=== PATIENT | female | born 1975 | race Caucasian/White ===

== ENCOUNTER 2023-02-13 09:22 | Emergency (ER) | payer BC ==
[~2023-02-13] VITALS: Ht 154.9 cm; Wt 75.0 kg
[2023-02-13 09:34] VITALS: BP 125/88
[2023-02-13] MEDS ORDERED: ketorolac trometh inj. 60 MG/2 ML VIAL IM ONE (12:35)
[2023-02-13] MEDS ORDERED: CYCL-1 PO (13:29)
[2023-02-13 13:35] VITALS: PULSE 78; RESP 16; TEMP 98.1; O2SAT 98
== END 2023-02-13 13:36 | disposition home or self-care (01) ==
LOC: ER 09:23
DX: G89.29 Other chronic pain (principal); M54.59 Other low back pain
CPT/HCPCS: 96372; 99283; J1885

== ENCOUNTER 2023-06-06 10:35 | Emergency (ER) | payer BC ==
[~2023-06-06] VITALS: Ht 154.9 cm; Wt 74.1 kg
[~2023-06-06 10:35] MED LIST: CYCL-1 PO
[2023-06-06 10:53] VITALS: TEMP 98.6
[2023-06-06 11:18] LABS: BASOPHILS # (AUTO) 0.1 X10'3 (0-0.2); BASOPHILS % (AUTO) 0.8 % (0-1); EOSINOPHILS # (AUTO) 0.2 X10'3 (0-0.9); EOSINOPHILS % (AUTO) 2.2 % (0-6); HEMATOCRIT 38.7 % (35.0-45.0); HEMOGLOBIN 13.2 g/dl (12.0-16.0); LYMPHOCYTES % (AUTO) 26.7 % (21-51); MEAN CORPUSCULAR HGB CONC 34.2 g/dL (33.0-36.5); MEAN CORPUSCULAR VOLUME 87.6 FL (78-98); MEAN PLATELET VOLUME 8.3 FL (7.4-10.4); MONOCYTES # (AUTO) 0.5 X10'3 (0-0.9); MONOCYTES % (AUTO) 6.6 % (2-12); NEUTROPHILS # (AUTO) 4.7 X10'3 (1.8-7.7); NEUTROPHILS % (AUTO) 63.7 % (42-75); PLATELET COUNT 242 X10'3 (140-440); RED BLOOD COUNT 4.41 X10'6 (4.20-5.60); RED CELL DISTRIBUTION WIDTH 12.8 % (11.5-14.5); WHITE BLOOD COUNT 7.4 X10'3 (4.5-11.0)
[2023-06-06 11:32] LABS: ALANINE AMINOTRANSFERASE 33 U/L (12-78); ALBUMIN 3.9 G/DL (3.4-5.0); ALBUMIN/GLOBULIN RATIO 1.1 (1.1-1.5); ALKALINE PHOSPHATASE 92 IU/L (46-116); ANION GAP 9 (8-16); ASPARTATE AMINO TRANSFERASE 28 U/L (10-37); BILIRUBIN,TOTAL 0.6 MG/DL (0.1-1.0); BLOOD UREA NITROGEN 13 MG/DL (7-18); BUN/CREATININE RATIO 14.1 (10.0-20.0); CALCIUM 9.1 MG/DL (8.5-10.1); CHLORIDE 104 MMOL/L (99-107); CREATININE 0.92 MG/DL (0.40-0.90); GLUCOSE 91 MG/DL (70-104); POTASSIUM 3.6 MMOL/L (3.5-5.1); SODIUM 140 MMOL/L (135-145); TOTAL CARBON DIOXIDE 26.7 MMOL/L (24-32); TOTAL PROTEIN 7.5 G/DL (6.4-8.2); eCRCL 56 ML/MIN; eGFR 65 ML/MIN
[2023-06-06 11:39] LABS: PRO BRAIN NATRIURETIC PEPTIDE 111 PG/ML (0-125)
[2023-06-06 12:21] LABS: HCG SERUM QL NEGATIVE
[2023-06-06 12:23] LABS: FREE T4 (FREE THYROXINE) 0.89 NG/DL (0.73-1.40); THYROID STIMULATING HORMONE 3.21 ulU/ml (0.34-4.50)
[2023-06-06 13:51] VITALS: BP 132/77; PULSE 62; RESP 17; O2SAT 98
== END 2023-06-06 13:57 | disposition home or self-care (01) ==
LOC: ER 10:35
DX: R07.9 Chest pain, unspecified (principal); R20.0 Anesthesia of skin
CPT/HCPCS: 36415; 71045; 80053; 83880; 84439; 84443; 84484; 84703; 85025; 93005; 99285